=== PATIENT | female | born 1980 | race Caucasian/White ===

== ENCOUNTER 2018-08-25 10:25 | Emergency (ER) | payer OTHER ==
[2018-08-25] MEDS ORDERED: NS 0.9% 1000 ML* 1,000 ML IV ONE (12:30)
[2018-08-25] MEDS ORDERED: Ondansetron INJ* 2 MG/ML VIAL IV ONE (12:30)
[2018-08-25] MEDS ORDERED: Morphine INJ* 2 MG/ML 1 ML SYRINGE (TWO MG - NEW SYRINGE VERSION) IV ONE (12:30)
--- NOTE | 2018-08-25 12:30 | ED ---
Abdominal Pain/Female - HPI Summary HPI Summary: Patient and Dr. Patiño are communicating in Swedish. Per Dr. Patiño: Pt is a 37 y/o F presenting with diffuse abd tenderness, mostly at the RLQ, onset yesterday after she drank Gatorade. She was unable to sleep throughout the night because she could not get comfortable. Pt had multiple episodes of vomiting yesterday, but has not today. Denies diarrhea, her last BM was yesterday and normal. Pain is rated as 7/10 if not moving and 10/10 when moving. Non-smoker. Denies PMHx. She is a PhD student at [employer], and is from [facility]. - History of Current Complaint Chief Complaint: EDAbdPain Stated Complaint: ABD PAIN Time Seen by Provider: 08/25/18 12:13 Hx Obtained From: Patient Onset/Duration: Gradual Onset, Lasting Days - yesterday, Still Present Timing: Constant Severity Initially: Moderate Severity Currently: Moderate Pain Intensity: 7 - 10/10 at its worst Pain Scale Used: 0-10 Numeric Location: Diffuse, Discrete At: RLQ Character: Other: - Aching Aggravating Factor(s): Movement Associated Signs and Symptoms: Positive: Nausea, Vomiting. Negative: Diarrhea Allergies/Adverse Reactions: Allergies Allergy/AdvReac Type Severity Reaction Status Date / Time No Known Allergies Allergy Verified 08/25/18 10:29 Home Medications: Home Medications [place]-3/Dha/Epa/Fish Oil [Fish Oil 500 mg Softgel] 1 cap PO DAILY 08/25/18 [ History Confirmed 08/25/18] PMH/Surg Hx/FS Hx/Imm Hx Previously Healthy: No Endocrine/Hematology History: Denies: Hx Diabetes Respiratory History: Denies: Hx Chronic Obstructive Pulmonary Disease (COPD) Opthamlomology History: Denies: Hx Legally Blind EENT History: Denies: Hx Deafness - Immunization History Immunizations Up to Date: Yes Infectious Disease History: No Infectious Disease History: Denies: Traveled Outside the [place] in Last 30 Days - Family History Known Family History: Positive: Cardiac Disease - father, Other - skeletal - mother - Social History Occupation: Student Lives: With Family Alcohol Use: None Hx Substance Use: No Substance Use Type: Reports: None Smoking Status (MU): Never Smoked Tobacco Review of Systems Negative: Fever Negative: Cough Positive: Abdominal Pain, Vomiting, Nausea. Negative: Diarrhea All Other Systems Reviewed And Are Negative: Yes Physical Exam - Summary Physical Exam Summary: VITAL SIGNS: Reviewed. GENERAL: Patient is a well-developed and nourished FEMALE who is lying comfortable in the stretcher. Patient is not in any acute respiratory distress. HEAD AND FACE: No signs of trauma. No ecchymosis, hematomas or skull depressions. No sinus tenderness. EYES: PERRLA, EOMI x 2, No injected conjunctiva, no nystagmus. EARS: Hearing grossly intact. Ear canals and tympanic membranes are within normal limits. MOUTH: Oropharynx within normal limits. NECK: Supple, trachea is midline, no adenopathy, no JVD, no carotid bruit, no c- spine tenderness, neck with full ROM. CHEST: Symmetric, no tenderness at palpation LUNGS: Clear to auscultation bilaterally. No wheezing or crackles. CVS: Regular rate and rhythm, S1 and S2 present, no murmurs or gallops appreciated. ABDOMEN: Soft. Diffuse abd tenderness, mostly in RLQ. No signs of distention. No rebound, no guarding, and no masses palpated. Bowel sounds are normal. EXTREMITIES: FROM in all major joints, no edema, no cyanosis or clubbing. NEURO: Alert and oriented x 3. No acute neurological deficits. Speech is normal and follows commands. SKIN: Dry and warm Triage Information Reviewed: Yes Vital Signs On Initial Exam: Initial Vitals Temp Pulse Resp BP Pulse Ox 98.6 F 74 16 119/68 100 08/25/18 10:25 08/25/18 10:25 08/25/18 10:25 08/25/18 10:25 08/25/18 10:25 Vital Signs Reviewed: Yes Diagnostics - Vital Signs Vital Signs Temp Pulse Resp BP Pulse Ox 08/25/18 12:05 69 110/67 100 08/25/18 10:25 98.6 F 74 16 119/68 100 - Laboratory Result Diagrams: 08/25/18 12:46 08/25/18 12:46 Lab Statement: Any lab studies that have been ordered have been reviewed, and results considered in the medical decision making process. - CT ABD/PEL CT CT Interpretation: Positive (See Comments) - IMPRESSION: 1. COMPLEX LEFT ADNEXAL CYST RECOMMEND A PELVIC ULTRASOUND FOR FURTHER EVALUATION. 2. POSSIBLE MILD THICKENING OF THE WALL OF THE TRANSVERSE COLON SUGGESTIVE OF MILD COLITIS VERSUS UPPER LIMITS OF NORMAL VARIATION. 3. CYSTIC PANCREATIC LESION. RECOMMEND A FOLLOW-UP MRI OF THE PANCREAS WITHOUT AND WITH CONTRAST. ED provider has reviewed this report. CT Interpretation Completed By: Radiologist - Ultrasound No standard instances Ultrasound Interpretation: Positive (See Comments) - Transvaginal U/S IMPRESSION : 1. COMPLEX CYSTIC LESION OF THE LEFT OVARY. THIS MAY REPRESENT AN UNUSUAL APPEARANCE OF RETRACTING CLOT WITHIN A HEMORRHAGIC CYST. RECOMMEND FOLLOW-UP IMAGING IN 6 WEEKS-12 WEEKS TO DOCUMENT RESOLUTION. 2. NO SONOGRAPHIC FEATURES OF TORSION. PLEASE NOTE THAT PARTIAL OR INTERMITTENT TORSION. ED provider has reviewed this report. Ultrasound Interpretation Completed By: Radiologist Re-Evaluation - Re-Evaluation 1 Re-Evaluation Time: 16:33 Change: Improved Comment: Pain has mostly resolved. Discussing results and plans for discharge with pt. Answered the patient's questions at length regarding cause of abd pain and follow up plan. Abdominal Pain Fem Course/Dx - Course Course Of Treatment: Pt is a 37 y/o F presenting with diffuse abd tenderness, mostly at the RLQ, onset yesterday after she drank Gatorade. She was unable to sleep throughout the night because she could not get comfortable. Pt had multiple episodes of vomiting yesterday, but has not today. Denies diarrhea, her last BM was yesterday and normal. Pain is rated as 7/10 if not moving and 10 /10 when moving. Non-smoker. Denies PMHx. She is a PhD student at [employer], and is from [facility]. Blood work without any significant abnormality except for increased CRP of 64.5. Beta hCG is negative. ABdominal and pelvic CT IMPRESSION: 1. COMPLEX LEFT ADNEXAL CYST RECOMMEND A PELVIC ULTRASOUND FOR FURTHER EVALUATION. 2. POSSIBLE MILD THICKENING OF THE WALL OF THE TRANSVERSE COLON SUGGESTIVE OF MILD COLITIS VERSUS UPPER LIMITS OF NORMAL VARIATION. 3. CYSTIC PANCREATIC LESION. RECOMMEND A FOLLOW-UP MRI OF THE PANCREAS WITHOUT AND WITH CONTRAST. Because of the complex left adnexal cyst had performed an ultrasound of the pelvis. Pelvic ultrasound IMPRESSION: 1. COMPLEX CYSTIC LESION OF THE LEFT OVARY. THIS MAY REPRESENT AN UNUSUAL APPEARANCE OF RETRACTING CLOT WITHIN A HEMORRHAGIC CYST. RECOMMEND FOLLOW-UP IMAGING IN 6 WEEKS-12 WEEKS TO DOCUMENT RESOLUTION. 2. NO SONOGRAPHIC FEATURES OF TORSION. PLEASE NOTE THAT PARTIAL OR INTERMITTENT TORSION MAY BE SONOGRAPHICALLY NORMAL. In the ED course the patient was given IV fluids and she was given Zofran and 1 dose of morphine for the pain. After his medications given the symptoms have significantly improved. However because of the suggestion of colitis I would recommend for the patient to follow with the [facility] urologist. Also because of the prostatic lesion the patient is to follow-up with spindle tester and the primary care physician. She reports that she will be going to check with on Saturday and she will be seen a spindle tester in [facility]. The patient was emphasized the importance of follow-up with GI doctor on the follow-up of the necrotic lesion. The patient understands and agrees. The patient at this point declined a pelvic exam. The patient is hemodynamically stable alert and oriented 3 therefore she will be discharged home. I discussed all the findings and test results with the patient. Patient was instructed to return to the emergency room immediately if any of the symptoms return or worsens. Plan of care was discussed with the patient and understands and agrees. All questions were answered at patient satisfaction. There were no further complaints or concerns. Lung exam before discharge: CTA B/L. Good air exchange. No wheezing or crackles heard. CVS: S1 and S2 present. No murmurs appreciated. Patient is alert and oriented x 3. Patient is hemodynamically stable. Patient will be discharged home with follow up PCP in the next 2-3 days - Diagnoses Differential Diagnosis: Positive: Appendicitis, Bowel Obstruction, Constipation , Diverticulitis, Ovarian Cyst, Renal Colic, Urinary Tract Infection Provider Diagnoses: Colitis, Pancreatic lesion, Ovarian cyst, complex Discharge - Sign-Out/Discharge Documenting (check all that apply): Patient Departure - DC - Discharge Plan Condition: Stable Disposition: HOME Prescriptions: Ibuprofen TAB* [Motrin TAB* 600 MG] 600 mg PO Q8H PRN #30 tab PRN Reason: Pain Ondansetron TAB* [Zofran 4 MG Tab*] 4 mg PO Q6H PRN #12 tab PRN Reason: Nausea oxyCODONE TAB* [Roxycodone TAB 5 mg*] 5 mg PO Q6H PRN #15 tab MDD 4 PRN Reason: Pain Patient Education Materials: Ibuprofen (By mouth), Ondansetron (By mouth), Oxycodone, Slow Release (By mouth), Ovarian Cyst (ED) Referrals: No Primary Care Phys,NOPCP [Primary Care Provider] - Additional Instructions: Follow up with your primary care provider in [facility] when you return next week. Please return to the ED if you experience new or worsening symptoms. - Billing Disposition and Condition Condition: STABLE Disposition: Home - Attestation Statements Document Initiated by Anabel: Yes Documenting Scribe: Gino Joyce Provider For Whom Anabel is Documenting (Include Credential): Dr. Cyril Patiño MD Scribe Attestation: I, Gino Joyce, scribed for Dr. Cyril Patiño MD on 08/26/18 at 1818. Scribe Documentation Reviewed: Yes Provider Attestation: The documentation as recorded by the Gino hickey accurately reflects the service I personally performed and the decisions made by me, Dr. Cyril Patiño MD
[2018-08-25] MEDS ORDERED: Morphine INJ* 4 MG/ML 1 ML SYRINGE (NEW SYRINGE VERSION) IV ONE (13:00)
[2018-08-25 13:06] LABS: ABS Basophils 0 10^3/ul (0-0.2); ABS Eosinophils 0 10^3/ul (0-0.6); ABS Lymphocytes 1.5 10^3/ul (1.0-4.8); ABS Monocytes 0.3 10^3/ul (0-0.8); ABS Nucleated RBC 0 10^3/ul; Eosinophil % 0.4 % (0-6); Hematocrit 38 % (35-47); Hemoglobin 12.6 g/dl (12.0-16.0); Mean Corpuscular HGB Conc 33 g/dl (31-36); Mean Corpuscular Hemoglobin 27 pg (27-31); Mean Corpuscular Volume 80 fL (80-97); Mean Platelet Volume 7.1 um3 (7.4-10.4); Nucleated Red Blood Cells % 0; Platelet Count 219 10^3/ul (150-450); Red Blood Count 4.73 10^6/ul (4.00-5.40); Red Cell Distribution Width 16 % (10.5-15); White Blood Count 6.9 10^3/ul (3.5-10.8)
[2018-08-25 13:21] LABS: EGFR Non-African American 93.6 (>60)
[2018-08-25] MEDS ORDERED: Iohexol 300* (CONTRAST) 10 ML SDV IV ONE (13:27)
--- NOTE | 2018-08-25 14:26 | RAD ---
INDICATION: Abdominal pain. COMPARISON: There are no relevant prior studies available for comparison. TECHNIQUE: A CT scan of the abdomen and pelvis was performed with intravenous and with oral contrast following intravenous injection of 80 ml of Omnipaque 300 nonionic contrast. Contiguous axial sections were obtained from the lung bases through the symphysis pubis. Images were reconstructed in the coronal and sagittal planes. FINDINGS: LUNG BASES: There is mild atelectasis in the right lower lobe. The lung bases are otherwise clear No pleural effusion is present. LIVER: The liver is decreased in attenuation consistent with fatty infiltration. No significant focal abnormality is seen. GALLBLADDER: No calcified gallstones are seen. BILE DUCTS: No intra or extrahepatic ductal distention is seen. SPLEEN: The spleen is normal in size without significant focal abnormality. PANCREAS: There is a cystic lesion in the pancreatic tail with a small area of peripheral calcification measuring 2.4 x 1.4 x 1.8 cm. ADRENAL GLANDS: The adrenal glands are normal in size. KIDNEYS: The kidneys are normal in size. No renal calculi or hydronephrosis is seen. There is a small 5 mm fatty density lesion present in the anterior aspect of the lower pole of the right kidney most consistent with an angiomyolipoma. AORTA: The aorta is normal in caliber and demonstrates homogeneous contrast opacification. LYMPH NODES: No significantly enlarged lymph nodes are seen. BOWEL: The stomach, small and large bowel appear nondistended. The appendix appears to be within normal limits. There is upper limits of normal of thickening of the wall of the transverse colon versus mild colitis. There is mild descending and sigmoid diverticulosis without evidence for diverticulitis. PELVIC ORGANS: The urinary bladder is markedly distended. No bladder wall thickening is seen. The uterus is normal in size. There is a complex cyst present in the left adnexal region measuring 3.7 x 3.2 x 2.6 cm in size. PERITONEUM: No free intraperitoneal air is seen. There is a small amount of free intraperitoneal fluid present posterior to the uterus. BONES: No significant focal osseous abnormality is seen. IMPRESSION: 1. COMPLEX LEFT ADNEXAL CYST RECOMMEND A PELVIC ULTRASOUND FOR FURTHER EVALUATION. 2. POSSIBLE MILD THICKENING OF THE WALL OF THE TRANSVERSE COLON SUGGESTIVE OF MILD COLITIS VERSUS UPPER LIMITS OF NORMAL VARIATION. 3. CYSTIC PANCREATIC LESION. RECOMMEND A FOLLOW-UP MRI OF THE PANCREAS WITHOUT AND WITH CONTRAST.
--- NOTE | 2018-08-25 16:07 | RAD ---
HISTORY: adenexal mass COMPARISONS: CT dated August 25, 2018 TECHNIQUE: Multiple transverse and longitudinal ultrasound images were obtained of the pelvis using grayscale, color Doppler, and spectral Doppler imaging using the endovaginal transducer. FINDINGS: UTERUS: The uterus measures 8.9 x 4.5 x 5.9 cm. The uterus is normal in shape, size, contour, and echotexture. ENDOMETRIUM: The endometrial stripe is smooth. The endometrium measures 1.1 cm in thickness. CUL-DE-SAC: There is no free fluid within the cul-de-sac. RIGHT OVARY: The right ovary measures 4.1 x 3.1 x 1.9 cm. Normal arterial and venous waveforms are identifiable within the ovary on spectral Doppler imaging. LEFT OVARY: The left ovary measures 5 x 3.4 x 4.4 cm. Normal arterial and venous waveforms are identifiable within the ovary on spectral Doppler imaging. There is a complex cystic lesion of the left ovary with a vascular marginal nodularity that may represent retracting clot. This measures 3.6 x 2.7 x 3.1 cm BLADDER: The bladder is not well visualized. OTHER: None IMPRESSION: 1. COMPLEX CYSTIC LESION OF THE LEFT OVARY. THIS MAY REPRESENT AN UNUSUAL APPEARANCE OF RETRACTING CLOT WITHIN A HEMORRHAGIC CYST. RECOMMEND FOLLOW-UP IMAGING IN 6 WEEKS-12 WEEKS TO DOCUMENT RESOLUTION. 2. NO SONOGRAPHIC FEATURES OF TORSION. PLEASE NOTE THAT PARTIAL OR INTERMITTENT TORSION MAY BE SONOGRAPHICALLY NORMAL.
[2018-08-25 17:19] VITALS: BP 112/63
== END 2018-08-25 17:18 | disposition home or self-care (01) ==
LOC: ED 10:25
DX: K52.9 Noninfective gastroenteritis and colitis, unspecified (principal); N83.202 Unspecified ovarian cyst, left side; K86.2 Cyst of pancreas
CPT/HCPCS: 36415; 74177; 76830; 80053; 82550; 83605; 83690; 83880; 84702; 85025; 86140; 86850; 86900; 86901; 96361; 96374; 96375; 99282; J2270; J2405; Q9967